=== PATIENT | female | born 1980 | race Caucasian/White ===

== ENCOUNTER 2018-07-15 05:55 | Day surgery (SDC) | payer OTHER ==
[2018-07-15] MEDS ORDERED: CEFAZOLIN 2 GM/50 ML (PMX) 50 ML IVPB (06:00)
[2018-07-15] MEDS ORDERED: LACTATED RINGER'S 1,000 ML IV* (06:00)
[2018-07-15 06:48] LABS: ADD MAN DIFF? NO
[2018-07-15 06:59] LABS: WHITE BLOOD COUNT 5.5 10^3/ul (4.8-10.8)
[2018-07-15 06:59] LABS: BASOPHILS % 0.5 % (0.0-2.0); EOSINOPHILS # 0.1 10^3/ul (0.0-0.5); EOSINOPHILS % 1.1 % (0.0-7.0); HEMATOCRIT 42.6 % (37.0-47.0); HEMOGLOBIN 14.5 g/dl (12.0-16.0); LYMPHOCYTES # 1.4 10^3/ul (0.8-2.9); LYMPHOCYTES % 26.1 % (15.0-51.0); MEAN CORPUSCULAR HEMOGLOBIN 30.7 pg (29.0-33.0); MEAN CORPUSCULAR VOLUME 90.3 fl (82.0-101.0); MEAN PLATELET VOLUME 9.6 fl (7.4-10.4); MONOCYTE # 0.4 10^3/ul (0.3-0.9); MONOCYTES % 7.1 % (0.0-11.0); NEUTROPHIL # 3.6 10^3/ul (1.6-7.5); NEUTROPHILS % 64.8 % (39.0-77.0); PLATELET COUNT 248 10^3/UL (140-415); RED BLOOD COUNT 4.72 10^6/ul (4.20-5.40); RED CELL DISTRIBUTION WIDTH 12.8 % (11.5-14.5)
[2018-07-15] MEDS ORDERED: DESFLURANE 15 MIN (07:00)
[2018-07-15] MEDS ORDERED: ROPIVACAINE 0.5 % 30 ML VIAL (07:00)
[2018-07-15 07:13] LABS: INR 1.01; PROTIME 13.4 Sec (11.9-14.9)
[2018-07-15 07:14] LABS: PARTIAL THROMBOPLASTIN TIME 29.9 Sec (23.0-35.0)
[2018-07-15] MEDS ORDERED: MIDAZOLAM 1 MG/ML 2 ML INJ (07:16)
[2018-07-15] MEDS ORDERED: LIDOCAINE 2% (SDV) 5 ML INJ (07:16)
[2018-07-15] MEDS ORDERED: PROPOFOL 20 ML (07:16)
[2018-07-15] MEDS ORDERED: SUCCINYLCHOLINE CHLORIDE 100 MG/5 ML SYG IV (07:16)
[2018-07-15] MEDS ORDERED: FENTAnyl 50 MCG/ML VIAL (07:16)
[2018-07-15] MEDS ORDERED: NEOSTIGMINE 3 MG/3 ML SYRINGE (07:17)
[2018-07-15] MEDS ORDERED: ROCURONIUM 50 MG INJ (07:17)
[2018-07-15] MEDS ORDERED: ONDANSETRON 4 MG INJ (07:17)
[2018-07-15] MEDS ORDERED: GLYCOPYRROLATE 1 MG INJ (07:17)
[2018-07-15] MEDS ORDERED: DEXAMETHASONE 4 MG/ML 5 ML INJ (07:18)
[2018-07-15] MEDS ORDERED: CEFAZOLIN 1 GM INJ (07:18)
[2018-07-15] MEDS: LIDOCAINE 1%/EPI 30 ML INJ (07:27)
[2018-07-15] MEDS ORDERED: FENTAnyl 50 MCG/ML VIAL IV (07:30)
[2018-07-15] MEDS ORDERED: MEPERIDINE 25 MG INJ IV (07:30)
[2018-07-15] MEDS ORDERED: ONDANSETRON 4 MG INJ IV (07:30)
[2018-07-15] MEDS ORDERED: LEVALBUTEROL (NEB) 1.25 MG/0.5 ML AMP HHN (07:30)
[2018-07-15] MEDS ORDERED: HYDROmorphONE 1 MG/5 ML IV SYRINGE IV ×3 (07:30)
[2018-07-15] MEDS ORDERED: DIPHENHYDRAMINE 50 MG INJ IV (07:30)
[2018-07-15] MEDS: FENTAnyl 50 MCG/ML VIAL IV ×2 (08:42→08:52)
[2018-07-15] MEDS: KETOROLAC 30 MG INJ IV (08:42)
== END 2018-07-15 10:11 | disposition home or self-care (01) ==
LOC: SDS 05:55
DX: Z30.2 Encounter for sterilization (principal)
CPT/HCPCS: 58670; 71045; 85025; 85610; 85730